=== PATIENT | male | born 1950 | race Caucasian/White ===

== ENCOUNTER 2018-07-06 11:17 | Outpatient (REF) | payer OTHER, SELFPAY ==
[2018-07-06 14:12] LABS: BUN 19 mg/dL (7-18); CREATININE 0.84 mg/dL (0.70-1.30); Calcium 9.4 mg/dL (8.5-10.1); Chloride 103 mmol/L (98-107); Cholesterol 199 mg/dL (50-200); Glucose 140 mg/dL (70-100); HDL Cholesterol 70 mg/dL (40-60); LDL CHOLESTEROL 102 mg/dL (<100); Potassium 4.1 mmol/L (3.5-5.1); Sodium 142 mmol/L (136-145); Triglyceride 107 mg/dL (30-150)
== END 2018-07-06 11:37 ==
LOC: NCHCN 11:17
PROVIDERS: PCP Family Medicine; Visit Provider Family Medicine
DX: Z00.00 Encounter for general adult medical examination without abnormal findings (principal); E11.9 Type 2 diabetes mellitus without complications; E78.5 Hyperlipidemia, unspecified
CPT/HCPCS: 80048; 80061; 83721

== ENCOUNTER 2019-12-01 16:32 | Outpatient (REF) | payer OTHER, SELFPAY ==
[2019-12-01 22:07] LABS: HCT 44.2 % (40.0-50.0); HGB 14.7 g/dL (13.5-17.5); MCH 29.9 pg (27.0-33.0); MCHC 33.3 % (32.0-36.0); Platelet Count 248 10^3/uL (130-400); RBC 4.91 10^6/uL (4.36-5.78); RDW 13.2 % (11.8-14.1); RDW-SD 43.4 fL; WBC 7.35 10^3/uL (4.4-10.8)
[2019-12-01 22:34] LABS: ALT 27 U/L (16-63); AST 23 U/L (15-37); Albumin 4.2 g/dL (3.4-5.0); Alkaline Phosphatase 68 U/L (46-116); BUN 15 mg/dL (7-18); Bilirubin, Total 0.6 mg/dL (0.2-1.0); CREATININE 0.81 mg/dL (0.70-1.30); Calcium 9.4 mg/dL (8.5-10.1); Chloride 100 mmol/L (98-107); Glucose 117 mg/dL (74-106); Potassium 3.5 mmol/L (3.5-5.1); Sodium 137 mmol/L (136-145); Total Protein 7.5 g/dL (6.4-8.2)
== END 2019-12-01 16:52 ==
LOC: NCHCN 16:32
PROVIDERS: PCP Family Medicine; Visit Provider Family Medicine
DX: I10 Essential (primary) hypertension (principal); E11.9 Type 2 diabetes mellitus without complications; K70.9 Alcoholic liver disease, unspecified
CPT/HCPCS: 80053; 85027

== ENCOUNTER 2021-03-07 12:24 | Outpatient (REF) | payer MEDICARE, BC, SELFPAY ==
[2021-03-07 14:54] LABS: Anion Gap 11.2 mmol/L (3-11); BUN 21 mg/dL (7-18); CO2 27.8 mmol/L (21.0-32.0); CREATININE 0.9 mg/dL (0.70-1.30); Calcium 9.5 mg/dL (8.5-10.1); Calculated LDL 100 mg/dL (<100); Chloride 101 mmol/L (98-107); Cholesterol 197 mg/dL (<200); Glucose 146 mg/dL (74-106); HDL Cholesterol 67 mg/dL (40-60); Potassium 3.9 mmol/L (3.5-5.1); Sodium 140 mmol/L (136-145); Triglyceride 150 mg/dL (<150)
== END 2021-03-07 12:25 | disposition home or self-care (01) ==
LOC: NCHCN 12:24
PROVIDERS: PCP Family Medicine; Visit Provider Family Medicine
DX: E11.9 Type 2 diabetes mellitus without complications (principal); E78.5 Hyperlipidemia, unspecified
CPT/HCPCS: 80048; 80061

== ENCOUNTER 2022-03-03 19:47 | Outpatient (REF) | payer MEDICARE, BC, SELFPAY ==
[2022-03-03 15:52] LABS: ALT 30 U/L (16-63); AST 28 U/L (15-37); Albumin 3.9 g/dL (3.4-5.0); Alkaline Phosphatase 59 U/L (46-116); Anion Gap 12.8 mmol/L (3-11); BUN 13 mg/dL (7-18); Bilirubin, Total 0.7 mg/dL (0.2-1.0); CO2 25.2 mmol/L (21.0-32.0); CREATININE 1.1 mg/dL (0.70-1.30); Calcium 8.9 mg/dL (8.5-10.1); Chloride 98 mmol/L (98-107); Estimated GFR 72.22 (mL/min/1.73m2); Glucose 150 mg/dL (74-106); Potassium 3.3 mmol/L (3.5-5.1); Sodium 136 mmol/L (136-145); Total Protein 7.5 g/dL (6.4-8.2)
== END 2022-03-03 19:48 | disposition home or self-care (01) ==
LOC: NCHCN 19:47
PROVIDERS: PCP Family Medicine; Visit Provider Family Medicine
DX: E11.9 Type 2 diabetes mellitus without complications (principal); F10.99 Alcohol use, unspecified with unspecified alcohol-induced disorder
CPT/HCPCS: 80053

== ENCOUNTER 2022-08-11 17:04 | Outpatient (REF) | payer MEDICARE, BC, SELFPAY ==
[2022-08-11 19:22] LABS: COMMENT (LAB VIEW ONLY) 65.85 mg/dL
== END 2022-08-11 17:05 | disposition home or self-care (01) ==
LOC: NCHCN 17:04
PROVIDERS: PCP Family Medicine; Visit Provider Family Medicine
DX: E11.9 Type 2 diabetes mellitus without complications (principal)
CPT/HCPCS: 82043; 82570

== ENCOUNTER 2023-02-11 19:00 | Outpatient (REF) | payer MEDICARE, BC, SELFPAY ==
[2023-02-11 15:48] LABS: ALT 31 U/L (16-63); AST 23 U/L (15-37); Albumin 3.9 g/dL (3.4-5.0); Alkaline Phosphatase 67 U/L (46-116); Anion Gap 12.2 mmol/L (3-11); BUN 17 mg/dL (7-18); Bilirubin, Total 0.6 mg/dL (0.2-1.0); CO2 24.8 mmol/L (21.0-32.0); CREATININE 1.3 mg/dL (0.70-1.30); Calcium 9.1 mg/dL (8.5-10.1); Chloride 97 mmol/L (98-107); Estimated GFR 58.73 (mL/min/1.73m2); Glucose 127 mg/dL (74-106); Magnesium 1.4 mg/dL (1.8-2.4); Potassium 4.2 mmol/L (3.5-5.1); Sodium 134 mmol/L (136-145); Total Protein 7.4 g/dL (6.4-8.2); Vitamin B12 138 pg/mL (193-986)
== END 2023-02-11 19:01 | disposition home or self-care (01) ==
LOC: NCHCN 19:00
PROVIDERS: PCP Family Medicine; Visit Provider Family Medicine
DX: E11.9 Type 2 diabetes mellitus without complications (principal); E87.6 Hypokalemia; F10.99 Alcohol use, unspecified with unspecified alcohol-induced disorder
CPT/HCPCS: 80053; 82607; 83735

== ENCOUNTER 2023-05-18 15:11 | Outpatient (REF) | payer MEDICARE, BC, SELFPAY ==
[2023-05-18 16:14] LABS: Magnesium 1.7 mg/dL (1.8-2.4); Vitamin B12 749 pg/mL (193-986)
[2023-05-18 16:15] LABS: Hemoglobin A1C 6.3 % (<5.7)
== END 2023-05-18 15:12 | disposition home or self-care (01) ==
LOC: NCHCN 15:11
PROVIDERS: PCP Family Medicine; Visit Provider Family Medicine
DX: E11.9 Type 2 diabetes mellitus without complications (principal); E83.42 Hypomagnesemia; E53.8 Deficiency of other specified B group vitamins
CPT/HCPCS: 82607; 83036; 83735

== ENCOUNTER 2023-11-30 15:04 | Outpatient (REF) | payer MEDICARE, BC, SELFPAY ==
[2023-11-30 16:51] LABS: HCT 38.3 % (40.0-50.0); HGB 13.2 g/dL (13.5-17.5); MCH 31.5 pg (27.0-33.0); MCHC 34.5 % (32.0-36.0); MCV 91 fL (80-95); MPV 9.8 fL (8.0-11.0); Platelet Count 230 10^3/uL (130-400); RBC 4.19 10^6/uL (4.36-5.78); RDW 12.6 % (11.8-14.1); RDW-SD 41.8 fL
[2023-11-30 17:01] LABS: ESR 18 mm/hr (0-20)
[2023-11-30 18:00] LABS: ALT 34 U/L (16-63); AST 25 U/L (15-37); Albumin 3.8 g/dL (3.4-5.0); Alkaline Phosphatase 64 U/L (46-116); Anion Gap 13.9 mmol/L (3-11); BUN 14 mg/dL (7-18); Bilirubin, Total 0.44 mg/dL (0.2-1.0); CO2 26.1 mmol/L (21.0-32.0); Calcium 9.2 mg/dL (8.5-10.1); Chloride 101 mmol/L (98-107); Estimated GFR 79.97 (mL/min/1.73m2); Folate 7.4 ng/mL (8.6-20.0); Glucose 141 mg/dL (74-106); Magnesium 1.4 mg/dL (1.8-2.4); Potassium 3.8 mmol/L (3.5-5.1); Sodium 141 mmol/L (136-145); TSH 2.19 uIU/Ml (0.36-3.74); Total Protein 7.3 g/dL (6.4-8.2); Vitamin B12 268 pg/mL (193-986)
[2023-11-30 18:52] LABS: C-Reactive Protein < 0.50 mg/dL (<or=0.5)
[2023-11-30 18:53] LABS: COMMENT (LAB VIEW ONLY) 69.24 mg/dL; Microalb ug/mg Crea 9.8 ug/mg Cr
== END 2023-11-30 15:05 | disposition home or self-care (01) ==
LOC: NCHCN 15:04
PROVIDERS: PCP Student in an Organized Health Care Education/Training Program; Visit Provider Student in an Organized Health Care Education/Training Program
DX: E11.9 Type 2 diabetes mellitus without complications (principal)
CPT/HCPCS: 80053; 85027; 85652; 82043; 82570; 82607; 82746; 83036; 83735; 84443; 86140

== ENCOUNTER 2023-12-24 07:05 | Outpatient (CLI) | payer MEDICARE, BC, SELFPAY ==
[2023-12-24 19:31] LABS: Homocysteine 12.9 umol/L (5.0-13.9)
[2023-12-29 10:16] LABS: Methylmalonic Acid 0.12 nmol/mL (<=0.40)
== END 2023-12-24 07:06 | disposition home or self-care (01) ==
LOC: LBO 07:06
PROVIDERS: PCP Student in an Organized Health Care Education/Training Program; Visit Provider Student in an Organized Health Care Education/Training Program
DX: E11.9 Type 2 diabetes mellitus without complications (principal); R20.2 Paresthesia of skin; I10 Essential (primary) hypertension
CPT/HCPCS: 36415; 80186; 83090

== ENCOUNTER 2024-12-06 15:48 | Outpatient (REF) | payer MEDICARE, BC, SELFPAY ==
[2024-12-06 22:02] LABS: Anion Gap 10.3 mmol/L (3-11); BUN 17 mg/dL (7-18); CO2 30.7 mmol/L (21.0-32.0); Calcium 9.5 mg/dL (8.5-10.1); Calculated LDL 77 mg/dL (<100); Chloride 100 mmol/L (98-107); Cholesterol 171 mg/dL (<200); Estimated GFR 70.88 (mL/min/1.73m2); Folate 6.3 ng/mL (8.6-20.0); Glucose 125 mg/dL (74-106); HDL Cholesterol 64 mg/dL (>or=40); Magnesium 1.6 mg/dL (1.8-2.4); Potassium 3.9 mmol/L (3.5-5.1); Sodium 141 mmol/L (136-145); TSH 2.47 uIU/mL (0.36-3.74); Triglyceride 152 mg/dL (<150); Vitamin B12 299 pg/mL (193-986)
[2024-12-06 22:11] LABS: COMMENT (LAB VIEW ONLY) 39.74 mg/dL; Microalb ug/mg Crea 13.1 ug/mg Cr
== END 2024-12-06 15:49 | disposition home or self-care (01) ==
LOC: NCHCN 15:48
PROVIDERS: PCP Student in an Organized Health Care Education/Training Program; Visit Provider Student in an Organized Health Care Education/Training Program
DX: E11.9 Type 2 diabetes mellitus without complications (principal)
CPT/HCPCS: 80048; 80061; 82043; 82570; 82607; 82746; 83735; 84443